=== PATIENT | male | born 1930 | race Caucasian/White ===

== ENCOUNTER 2017-10-02 00:38 | Inpatient (IN) | payer MEDICARE ==
[2017-10-02 01:18] LABS: ADD MAN DIFF? NO
[2017-10-02 01:21] LABS: BASO % 0 % (0-3); EOS % 0 % (0-3); HEMATOCRIT 45.1 % (39.0-53.0); HEMOGLOBIN 15.2 g/dL (13.0-17.5); LYMPH # 1.2 x10^3/uL (1.0-4.8); LYMPH % 11 % (24-48); MEAN CORPUSCULAR HEMOGLOBIN 31 pg (25-35); MEAN CORPUSCULAR HGB CONC 34 g/dL (31-37); MEAN CORPUSCULAR VOLUME 93 fL (79-100); MONO # 0.7 x10^3/uL (0.0-1.1); MONO % 6 % (0-9); NEUT # 8.5 x10^3uL (1.8-7.7); NEUT % 82 % (31-73); PLATELET COUNT 161 x10^3/uL (140-400); RED BLOOD COUNT 4.85 x10^6/uL (4.30-5.70); RED CELL DISTRIBUTION WIDTH 13.3 % (11.5-14.5); WHITE BLOOD COUNT 10.4 x10^3/uL (4.0-11.0)
[2017-10-02 01:33] LABS: ANION GAP 7 (6-14); BLOOD UREA NITROGEN 25 mg/dL (8-26); BUN/CREATININE RATIO 25 (6-20); CALCIUM 9.3 mg/dL (8.5-10.1); CARBON DIOXIDE 27 mmol/L (21-32); CHLORIDE 102 mmol/L (98-107); GFR 70.7; GLUCOSE 133 mg/dL (70-99); POTASSIUM 3.9 mmol/L (3.5-5.1); SODIUM 136 mmol/L (136-145)
[2017-10-02 01:39] LABS: ALBUMIN 3.6 g/dL (3.4-5.0); ALBUMIN/GLOBULIN RATIO 0.9 (1.0-1.7); ALK PHOS 123 U/L (46-116); ALT (SGPT) 23 U/L (16-63); AST (SGOT) 22 U/L (15-37); LIPASE 60 U/L (73-393); TOTAL BILIRUBIN 0.4 mg/dL (0.2-1.0); TOTAL PROTEIN 7.5 g/dL (6.4-8.2)
[2017-10-02 01:41] LABS: LACTIC ACID 1.8 mmol/L (0.4-2.0); TROPONINI < 0.017 ng/mL (0.000-0.055)
[2017-10-02 02:03] LABS: BILIRUBIN,URINE NEGATIVE (NEG); CLARITY,URINE CLEAR; COLOR,URINE YELLOW; GLUCOSE,URINE NEGATIVE (NEG); INFLUENZA A PATIENT NEGATIVE (NEGATIVE); NITRITE,URINE POSITIVE (NEG); PH,URINE 5.5; PROTEIN,URINE 30 mg/dL (NEG-TRACE); UROBILINOGEN,URINE 0.2 mg/dL (0.2 mg/dL)
[2017-10-02 02:05] LABS: INFLUENZA B PATIENT POSITIVE (NEGATIVE); OBC FLU VALID
[2017-10-02] MEDS: ACETAMINOPHEN 500 MG TABLET PO (02:07)
[2017-10-02] MEDS ORDERED: ONDANSETRON PF 4 MG/2 ML VIAL. IV (02:15)
[2017-10-02] MEDS ORDERED: ACETAMINOPHEN 325 MG TABLET. PO (02:15)
[2017-10-02] MEDS ORDERED: fentaNYL PF VIAL 100 MCG/2 ML VIAL IV (02:15)
[2017-10-02 02:17] LABS: BACTERIA,URINE MANY /HPF (0-FEW); SQUAMOUS EPITHELIAL CELL,UR OCC /LPF
[2017-10-02] MEDS: AZITHRMYCN 500MG IVPB FOR OMNI 250 ML IV (05:23)
[2017-10-02] MEDS: OSELTAMIVIR 30 MG CAPSULE PO ×2 (05:23→20:03)
[2017-10-02 06:48] LABS: LACTIC ACID 1.8 mmol/L (0.4-2.0)
[2017-10-02] MEDS ORDERED: SALIVA STIMULANT AGENT 44ML SPRAY BOTTLE. PO (09:30)
[2017-10-02] MEDS: cefTRIAXone IV Push 1 GM VIAL. IVP (10:46)
[2017-10-02] MEDS: LACTOBACILLUS RHAMNOSUS GG 1 CAPSULE. PO ×2 (10:47→20:03)
[2017-10-02] MEDS: ENOXAPARIN 40 MG/0.4 ML SYRINGE. SQ (10:47)
[2017-10-02] MEDS: GADOBUTROL 7.5 MMOL/7.5 ML VIAL IV (14:30)
[2017-10-02] MEDS: predniSONE 10 MG TABLET PO (20:03)
[2017-10-03 04:41] LABS: ADD MAN DIFF? NO
[2017-10-03 04:48] LABS: BASO % 0 % (0-3); EOS % 0 % (0-3); HEMATOCRIT 40.1 % (39.0-53.0); HEMOGLOBIN 13.6 g/dL (13.0-17.5); LYMPH # 1.1 x10^3/uL (1.0-4.8); LYMPH % 15 % (24-48); MEAN CORPUSCULAR HEMOGLOBIN 31 pg (25-35); MEAN CORPUSCULAR HGB CONC 34 g/dL (31-37); MEAN CORPUSCULAR VOLUME 92 fL (79-100); MONO # 0.2 x10^3/uL (0.0-1.1); MONO % 3 % (0-9); NEUT # 5.9 x10^3uL (1.8-7.7); NEUT % 83 % (31-73); PLATELET COUNT 148 x10^3/uL (140-400); RED BLOOD COUNT 4.35 x10^6/uL (4.30-5.70); RED CELL DISTRIBUTION WIDTH 13.5 % (11.5-14.5); WHITE BLOOD COUNT 7.2 x10^3/uL (4.0-11.0)
[2017-10-03 05:18] LABS: ALBUMIN 2.8 g/dL (3.4-5.0); ALBUMIN/GLOBULIN RATIO 0.8 (1.0-1.7); ALK PHOS 91 U/L (46-116); ALT (SGPT) 21 U/L (16-63); ANION GAP 8 (6-14); AST (SGOT) 29 U/L (15-37); BLOOD UREA NITROGEN 29 mg/dL (8-26); BUN/CREATININE RATIO 41 (6-20); CALCIUM 8.7 mg/dL (8.5-10.1); CARBON DIOXIDE 27 mmol/L (21-32); CHLORIDE 104 mmol/L (98-107); CREATININE 0.7 mg/dL (0.7-1.3); GFR 106.7; GLUCOSE 126 mg/dL (70-99); POTASSIUM 4.1 mmol/L (3.5-5.1); SODIUM 139 mmol/L (136-145); TOTAL BILIRUBIN 0.4 mg/dL (0.2-1.0); TOTAL PROTEIN 6.3 g/dL (6.4-8.2)
[2017-10-03] MEDS: AZITHROMYCIN 250 MG TABLET. PO (10:11)
[2017-10-03] MEDS: LACTOBACILLUS RHAMNOSUS GG 1 CAPSULE. PO ×2 (10:11→20:40)
[2017-10-03] MEDS: predniSONE 10 MG TABLET PO (10:11)
[2017-10-03] MEDS: OSELTAMIVIR 30 MG CAPSULE PO ×2 (10:11→20:41)
[2017-10-03] MEDS: ENOXAPARIN 40 MG/0.4 ML SYRINGE. SQ (10:13)
[2017-10-03] MEDS: cefTRIAXone IV Push 1 GM VIAL. IVP (10:13)
[2017-10-03] MEDS: IPRATRPIUM/ALBUTEROL 0.5/2.5MG 3 ML NEBU. NEB ×2 (11:25→19:35)
[2017-10-03] MEDS: VANCOMYCIN 1.5 GM in IV DEXTROSE 5 %-0.2 % NACL 500 ML IV (17:13)
[2017-10-03] MEDS: VANCOMYCIN PER PHARMACY MC (19:47)
[2017-10-04] MEDS: IPRATRPIUM/ALBUTEROL 0.5/2.5MG 3 ML NEBU. NEB ×5 (07:00→20:34)
[2017-10-04] MEDS ORDERED: ONDANSETRON ODT 4 MG TAB.RAPDIS. PO ×2 (08:30→09:45)
[2017-10-04] MEDS ORDERED: ONDANSETRON PF 4 MG/2 ML VIAL. IV ×2 (08:30→09:45)
[2017-10-04] MEDS: LACTOBACILLUS RHAMNOSUS GG 1 CAPSULE. PO ×2 (10:31→21:35)
[2017-10-04] MEDS: cefTRIAXone IV Push 1 GM VIAL. IVP (10:32)
[2017-10-04] MEDS: AZITHROMYCIN 250 MG TABLET. PO (10:32)
[2017-10-04] MEDS: OSELTAMIVIR 30 MG CAPSULE PO ×2 (10:32→21:36)
[2017-10-04] MEDS: predniSONE 10 MG TABLET PO (10:32)
[2017-10-04] MEDS: ENOXAPARIN 40 MG/0.4 ML SYRINGE. SQ (10:32)
[2017-10-04] MEDS: VANCOMYCIN PER PHARMACY MC (14:37)
[2017-10-04] MEDS: VANCOMYCIN 1 GM in IV DEXTROSE 5 %-0.2 % NACL 250 ML IV (18:55)
[2017-10-05] MEDS: IPRATRPIUM/ALBUTEROL 0.5/2.5MG 3 ML NEBU. NEB ×4 (07:31→19:29)
[2017-10-05] MEDS: ACETAMINOPHEN 500 MG TABLET PO ×2 (08:02→20:52)
[2017-10-05] MEDS: AZITHROMYCIN 250 MG TABLET. PO (08:02)
[2017-10-05] MEDS: OSELTAMIVIR 30 MG CAPSULE PO ×2 (08:02→20:43)
[2017-10-05] MEDS: predniSONE 10 MG TABLET PO (08:03)
[2017-10-05] MEDS: LACTOBACILLUS RHAMNOSUS GG 1 CAPSULE. PO ×2 (08:03→20:43)
[2017-10-05] MEDS: ENOXAPARIN 40 MG/0.4 ML SYRINGE. SQ (10:31)
[2017-10-05] MEDS: cefTRIAXone IV Push 1 GM VIAL. IVP (10:37)
[2017-10-05] MEDS: VANCOMYCIN PER PHARMACY MC (11:14)
[2017-10-05 17:15] LABS: VANC TR 2.8 mcg/mL (10.0-20.0)
[2017-10-05] MEDS: VANCOMYCIN 1 GM in IV DEXTROSE 5 %-0.2 % NACL 250 ML IV (18:19)
[2017-10-06] MEDS: IPRATRPIUM/ALBUTEROL 0.5/2.5MG 3 ML NEBU. NEB ×2 (07:37→11:19)
[2017-10-06] MEDS: predniSONE 10 MG TABLET PO (09:09)
[2017-10-06] MEDS: AZITHROMYCIN 250 MG TABLET. PO (09:09)
[2017-10-06] MEDS: OSELTAMIVIR 30 MG CAPSULE PO (09:09)
[2017-10-06] MEDS: LACTOBACILLUS RHAMNOSUS GG 1 CAPSULE. PO (09:09)
[2017-10-06] MEDS: cefTRIAXone IV Push 1 GM VIAL. IVP (10:38)
[2017-10-06] MEDS ORDERED: CEPHALEXIN 250 MG CAPSULE. PO (17:00)
== END 2017-10-06 14:35 | disposition home or self-care (01) | DRG 193 ==
LOC: ER 00:38 → 6 SOUTH 02:12
DX: J10.08 Influenza due to other identified influenza virus with other specified pneumonia (principal); J96.01 Acute respiratory failure with hypoxia; G92 Toxic encephalopathy; R78.81 Bacteremia; N39.0 Urinary tract infection, site not specified; J15.9 Unspecified bacterial pneumonia; J12.9 Viral pneumonia, unspecified; J44.0 Chronic obstructive pulmonary disease with (acute) lower respiratory infection; J44.1 Chronic obstructive pulmonary disease with (acute) exacerbation; J10.1 Influenza due to other identified influenza virus with other respiratory manifestations; J84.10 Pulmonary fibrosis, unspecified; W18.2XXA Fall in (into) shower or empty bathtub, initial encounter; J10.00 Influenza due to other identified influenza virus with unspecified type of pneumonia; B96.89 Other specified bacterial agents as the cause of diseases classified elsewhere; Y93.E1 Activity, personal bathing and showering; Z87.891 Personal history of nicotine dependence
CPT/HCPCS: 36415; 70450; 70553; 71045; 72125; 72141; 80053; 80202; 81001; 83605; 83690; 84484; 85025; 87040; 87086; 87186; 87205; 87804; 87804-59; 93005; 94640; 94760; 96374; 97116-GP; 97161-GP; 97166-GO; 99285; 99285-25; A9585; J0456; J0690; J0696; J1650; J3370; J7512; J7620; P9612; Q0144